=== PATIENT | female | born 1950 | race Caucasian/White ===

== ENCOUNTER 2018-10-08 11:54 | Observation (INO) | payer MEDICARE ==
[~2018-10-08] VITALS: Ht 167.6 cm; Wt 56.3 kg
[2018-10-08] VITALS (7 sets, daily range): BP systolic 93–103; BP diastolic 63–71
--- NOTE | 2018-10-08 12:34 | NUR ---
pt in ct now
--- NOTE | 2018-10-08 12:55 | NUR ---
FIRST CONTACT WITH PT. PT C/O LEFT EYE BLACK OUT AND RIGHT ARM OUT OF CONTROL FROM LAST NIGHT WITH RIGHT UPPER ABD PAIN AND EPIGASTRIC HEAVYNESS. PT DENIES N/D/V AT THIS TIME. VISUAL ACUITY INTACT AT THIS TIME. NEURO INTACT. PT AOX4. RESPS EVEN AND UNLABORED. ALL MONITORS IN PLACE. CALL LIGHT WITHIN REACH. EKG DONE BY ED TECT AT BEDSIDE.
[2018-10-08 12:59] LABS: BASOPHILS # (AUTO) 0.02 x10^3/uL (0-0.1); BASOPHILS % (AUTO) 0 % (0-1); EOSINOPHILS # (AUTO) 0.12 x10^3/uL (0-0.4); EOSINOPHILS % (AUTO) 2 % (1-7); LYMPHOCYTES # (AUTO) 1.65 x10^3/uL (1-3.4); LYMPHOCYTES % (AUTO) 24 % (22-44); MD NO; MEAN CORPUSCULAR HGB CONC 33.8 g/dL (32.4-35.8); MEAN CORPUSCULAR VOLUME 91.7 fL (80-100); MEAN PLATELET VOLUME 8.4 fL (7.4-10.4); MONOCYTES # (AUTO) 0.51 x10^3/uL (0.2-0.8); MONOCYTES % (AUTO) 7 % (2-9); NEUTROPHILS # (AUTO) 4.61 x10^3/uL (1.8-6.8); NEUTROPHILS % (AUTO) 67 % (42-75); PLATELET COUNT 227 x10^3/uL (130-400); RED BLOOD COUNT 5.07 x10^6/uL (3.82-5.3); RED CELL DISTRIBUTION WIDTH 13.5 % (9.6-15.2)
[2018-10-08 13:07] LABS: ALANINE AMINOTRANSFERASE 33 U/L (12-78); ALBUMIN 4.2 g/dL (3.4-5.0); ANION GAP 7 mmol/L (5-15); CALCIUM 9.5 mg/dL (8.5-10.1); CHLORIDE 105 mmol/L (98-107)
[2018-10-08 13:08] LABS: INTERNATIONAL NORMALIZED RATIO 1.07 (0.93-1.1); PROTHROMBIN TIME 11.3 Seconds (9.6-11.5)
[2018-10-08 13:10] LABS: ALKALINE PHOSPHATASE 59 U/L (45-117); BILIRUBIN,TOTAL 0.7 mg/dL (0.2-1.0); CREATININE 0.77 mg/dL (0.55-1.02); TOTAL PROTEIN 7.4 g/dL (6.4-8.2)
[2018-10-08] MEDS ORDERED: PREG150C PO (13:12)
[2018-10-08] MEDS ORDERED: CYCL1DRO EACHEYE (13:13)
--- NOTE | 2018-10-08 14:05 | NUR ---
pt resting in [facility]. all monitors in place. call light within reach. pt aox4. resps even and unlabored. pt denies any needs and concerns at this time.
[2018-10-08] MEDS ORDERED: ASPIRIN 325 MG TABLET EC ONE (14:12)
--- NOTE | 2018-10-08 14:25 | NUR ---
SBAR REPORT GIVEN TO ROSA VITALE. ALL QUESTIONS ANSWERED.
[2018-10-08] MEDS ORDERED: ASPIRIN 325 MG TABLET EC PO ONE (14:30)
--- NOTE | 2018-10-08 14:41 | NUR ---
PRECEPTOR NOTE: PIV PLACED. [facility] MD AT BEDSIDE TO ADMIT PT.
--- NOTE | 2018-10-08 15:24 | NUR ---
pt amb to br with steady gait. pt denies any needs and concerns at this time. pt aox4. resps even and unlabored.
[2018-10-08] MEDS ORDERED: ACETAMINOPHEN 325 MG TABLET PO PRN (15:30)
[2018-10-08 16:14] LABS: CHOLESTEROL, TOTAL 234 mg/dL (140-239); TRIGLYCERIDES 70 mg/dL (50-200); VLDL CHOLESTEROL 14 mg/dL (0-25)
[2018-10-08 16:17] LABS: CHOL/HDL RATIO 2.1; HDL CHOL % 49 % (28-40); HDL CHOLESTEROL (DIRECT) 114 mg/dL (40-60); LDL CHOLESTEROL,CALCULATED 106 mg/dL (54-169); LDL/HDL RATIO 0.9 (0.5-3.0); TROPONIN I < 0.015 ng/mL (0.000-0.045)
[2018-10-08] MEDS ORDERED: ENALAPRILAT 1.25 MG/ML, 2ML IVPush PRN (16:30)
[2018-10-08] MEDS ORDERED: ONDANSETRON ODT 4 MG PO PRN (16:30)
[2018-10-08] MEDS ORDERED: HYDROcodone/APAP 5/325 TABLET PO PRN (16:30)
[2018-10-08] MEDS ORDERED: BACLOFEN 10 MG TABLET PO PRN (17:00)
[2018-10-08] MEDS ORDERED: ENOXAPARIN 40 MG/0.4 ML SQ SCH (17:00)
[2018-10-08] MEDS: PREGABALIN 150 MG CAPSULE PO SCH (20:25)
[2018-10-08] MEDS ORDERED: TRAZODONE 50MG TABLET PO PRN (21:00)
[2018-10-08 21:58] LABS: TROPONIN I < 0.015 ng/mL (0.000-0.045)
[2018-10-09 01:50] VITALS: BP 106/62
[2018-10-09 01:52] VITALS: BP 97/66
[2018-10-09 01:53] VITALS: BP 88/59
[2018-10-09] MEDS ORDERED: ASPIRIN 81 MG TABLET EC PO SCH (06:00)
[2018-10-09 08:50] VITALS: BP_SYST 107; BP_SYST 90; BP_SYST 96; BP_DIAS 61; BP_DIAS 62; BP_DIAS 65
[2018-10-09] MEDS: PREGABALIN 150 MG CAPSULE PO SCH (09:32)
[2018-10-09 13:27] VITALS: BP_SYST 102; BP_SYST 94; BP_SYST 98; BP_DIAS 57; BP_DIAS 65
[2018-10-09] MEDS ORDERED: ASPI81TA45 PO (13:45)
[2018-10-09] MEDS ORDERED: LOVA10TA PO (13:45)
== END 2018-10-09 17:00 | disposition home or self-care (01) ==
LOC: ED 13:02 → INTOOBSV 14:01 → EDIP 14:01 → 4EST 16:09
PROVIDERS: ADMIT Family Medicine; ATTEND Family Medicine
DX: H53.9 Unspecified visual disturbance (principal); R20.0 Anesthesia of skin; R53.1 Weakness; E78.5 Hyperlipidemia, unspecified; E78.00 Pure hypercholesterolemia, unspecified; G89.29 Other chronic pain; M79.7 Fibromyalgia; Z82.3 Family history of stroke
CPT/HCPCS: 36415; 70450; 76700; 80053; 80061; 84484; 85025; 85610; 85730; 93005; 93306; 93880; 96372; 99284; G0378; J1650

== ENCOUNTER → 2020-03-02 | Outpatient (CLI) | payer MEDICARE ==
[~2020-03-02] MED LIST: ASPI81TA45 PO; CYCL1DRO EACHEYE; LOVA10TA PO; PREG150C PO
== END | disposition home or self-care (01) ==
LOC: CFH 08:09
PROVIDERS: ATTEND Registered Nurse
DX: R07.9 Chest pain, unspecified (principal)
CPT/HCPCS: 78452; 93017; A9502